=== PATIENT | male | born 1935 | race Caucasian/White ===

== ENCOUNTER 2023-06-06 10:50 | Emergency (ER) | payer MEDICARE ==
[2023-06-06 11:26] LABS: HEMATOCRIT 31.6 % (38.3-50.1); HEMOGLOBIN 10.4 g/dL (12.9-17.7); MEAN CORPUSCULAR HEMOGLOBIN 29.4 pg (27.0-33.3); MEAN CORPUSCULAR HGB CONC 33.1 g/dL (28.7-35.3); MEAN CORPUSCULAR VOLUME 88.9 fL (80.8-98.7); MEAN PLATELET VOLUME 8.8 fL (6.7-11.0); PLATELET COUNT,PLT 129 x10(3)uL (117-477); RED BLOOD CELL COUNT 3.55 x10(6)uL (3.90-5.90); WHITE BLOOD CELL COUNT,WBC 5.1 x10-3/uL (3.2-10.1)
[2023-06-06 11:33] LABS: A/G RATIO 0.6; ALANINE AMINOTRANSFERASE,ALT 50 U/L (12-36); ALBUMIN 2.2 g/dL (3.2-4.6); ALKALINE PHOSPHATASE 161 IU/L (56-112); ASPARTATE AMNIOTRANSFERASE,AST 42 IU/L (5-25); BLOOD UREA NITROGEN,BUN 22 mg/dL (7-18); BUN/CREATININE RATIO 14.7 (9-20); CALCIUM 8.6 mg/dL (8.6-10.2); CARBON DIOXIDE,CO2 28 mmol/L (21-32); CHLORIDE,CL 104 mmol/L (100-110); CREATININE 1.5 mg/dL (0.70-1.30); EST CRCL DRUG DOSING (CG) 39.52 mL/min; ESTIMATED GFR 45 mL/min (>60); GLUCOSE RANDOM 106 mg/dL (80-116); POTASSIUM,K 3.7 mmol/L (3.5-5.3); PROTEIN TOTAL,TP 5.9 g/dL (6.0-8.0); SODIUM,NA 139 mmol/L (135-145)
[2023-06-06 11:44] LABS: BAND PERCENT MAN 3 % (0-6); LYMPHOCYTES PERCENT MAN 8 % (13-37); MONOCYTES PERCENT MAN 8 % (4-12); SEG NEUTROPHILS PERCENT MAN 81 % (46-82)
[2023-06-06 11:45] LABS: ANISOCYTOSIS FEW
[2023-06-06 11:57] LABS: INFLUENZA A NAA NEGATIVE (NEGATIVE); INFLUENZA B NAA NEGATIVE (NEGATIVE); RESPIRATORY SYNCYTIAL VIR NAA NEGATIVE (NEGATIVE)
[2023-06-06 11:58] LABS: CORONAVIRUS COVID-19 NAA NEGATIVE (NEGATIVE)
[2023-06-06 12:20] VITALS: BP 121/62; PULSE 88
== END 2023-06-06 12:15 | disposition home or self-care (01) ==
LOC: FB.ED 10:50
DX: J18.9 Pneumonia, unspecified organism (principal); E03.9 Hypothyroidism, unspecified; Z87.891 Personal history of nicotine dependence; Z88.2 Allergy status to sulfonamides; Z79.899 Other long term (current) drug therapy; Z20.822 Contact with and (suspected) exposure to COVID-19
CPT/HCPCS: 0241U; 36415; 71046; 80053; 83605; 85025; 85379; 87040; 99284

== ENCOUNTER 2023-09-01 09:16 | Emergency (ER) | payer MEDICARE ==
[2023-09-01] MEDS ORDERED: Sodium Chloride 0.9% 10 ML Syringe FLUSH PRN (09:52)
[2023-09-01 10:04] LABS: BASOPHILS PERCENT AUTO 0.1 % (0.3-3.8); EOSINOPHILS PERCENT AUTO 0.1 % (0.1-6.8); HEMATOCRIT 35.5 % (38.3-50.1); HEMOGLOBIN 11.5 g/dL (12.9-17.7); LYMPHOCYTES ABSOLUTE AUTO 0.6 x10-3/uL (0.5-4.5); LYMPHOCYTES PERCENT AUTO 12.4 % (15.8-45.3); MEAN CORPUSCULAR HGB CONC 32.5 g/dL (28.7-35.3); MEAN CORPUSCULAR VOLUME 85.9 fL (80.8-98.7); MEAN PLATELET VOLUME 8.1 fL (6.7-11.0); MONOCYTES ABSOLUTE AUTO 0.4 x10-3/uL (0.0-1.2); NEUTROPHILS ABSOLUTE AUTO 3.7 x10-3/uL (1.7-6.9); NEUTROPHILS PERCENT AUTO 78.4 % (40.3-71.8); PLATELET COUNT,PLT 106 x10(3)uL (117-477); RED BLOOD CELL COUNT 4.13 x10(6)uL (3.90-5.90); RED CELL DISTRIBUTION WIDTH 16.9 % (12.4-15.0); WHITE BLOOD CELL COUNT,WBC 4.7 x10-3/uL (3.2-10.1)
[2023-09-01 10:10] LABS: BLOOD UREA NITROGEN,BUN 36 mg/dL (7-18); BUN/CREATININE RATIO 22.5 (9-20); CARBON DIOXIDE,CO2 26 mmol/L (21-32); CHLORIDE,CL 107 mmol/L (100-110); CREATININE 1.6 mg/dL (0.70-1.30); ESTIMATED GFR 42 mL/min (>60); GLUCOSE RANDOM 93 mg/dL (80-116); SODIUM,NA 143 mmol/L (135-145)
[2023-09-01 10:11] LABS: BASE EXCESS VENOUS,POC -3 mmol/L (-2 - 3+); PCO2 VENOUS,POC 36 mmHg (41-51)
[2023-09-01 10:16] LABS: A/G RATIO 0.9; ALANINE AMINOTRANSFERASE,ALT 39 U/L (12-36); ALBUMIN 2.9 g/dL (3.2-4.6); ALKALINE PHOSPHATASE 96 IU/L (56-112); ASPARTATE AMNIOTRANSFERASE,AST 56 IU/L (5-25); PROTEIN TOTAL,TP 6.1 g/dL (6.0-8.0)
[2023-09-01 10:23] LABS: TROPONIN I 58.3 pg/mL (4.0-60.3)
[2023-09-01 10:26] LABS: C-REACTIVE PROTEIN 20.71 mg/dL (<0.50)
[2023-09-01 11:07] LABS: BILIRUBIN,URINE NEGATIVE (NEGATIVE); GLUCOSE,URINE NORMAL (NORMAL); KETONES,URINE 15 mg/dL (NEGATIVE); LEUKOCYTE ESTERASE,URINE NEGATIVE (NEGATIVE); NITRITE,URINE NEGATIVE (NEGATIVE); OCCULT BLOOD,URINE MODERATE (NEGATIVE); PROTEIN,URINE TRACE mg/dL (NEGATIVE); UROBILINOGEN,URINE NORMAL (NEGATIVE)
[2023-09-01] MEDS: Sodium Chloride 0.9% 1,000 ML IV SCH ×2 (11:12→12:41)
[2023-09-01 11:14] LABS: APPEARANCE,URINE CLEAR (CLEAR); BACTERIA,URINE MODERATE (NS); COARSE GRANULAR CASTS,URINE FEW (NS); COLOR,URINE YELLOW (YELLOW); RBC,URINE 0-5 (0-5); SQUAMOUS EPITHELIAL CELLS,UR OCCASIONAL (NS,R,O); WBC,URINE 0-5 (0-5)
[2023-09-01 15:03] VITALS: BP 117/55; PULSE 61
== END 2023-09-01 14:00 | disposition home or self-care (01) ==
LOC: FB.ED 09:16
DX: S00.03XA Contusion of scalp, initial encounter (principal); S00.12XA Contusion of left eyelid and periocular area, initial encounter; E86.0 Dehydration; E03.9 Hypothyroidism, unspecified; Z86.16 Personal history of COVID-19; Z90.49 Acquired absence of other specified parts of digestive tract; Z79.899 Other long term (current) drug therapy; Z88.2 Allergy status to sulfonamides; W19.XXXA Unspecified fall, initial encounter; Y92.009 Unspecified place in unspecified non-institutional (private) residence as the place of occurrence of the external cause
CPT/HCPCS: 71045; 80053; 81001; 83605; 83880; 84484; 85025; 85379; 86140; 93005; 96360; 96361; 99285; J3490; J7030

== ENCOUNTER 2023-09-04 09:36 | Inpatient (IN) | payer MEDICARE ==
[2023-09-04] MEDS ORDERED: cefTRIAXone 2 GM Vial IVPUSH ONE (09:42)
[2023-09-04] MEDS ORDERED: Acetaminophen 325 MG Tab PO ONE (09:42)
[2023-09-04] MEDS ORDERED: Sodium Chloride 0.9% 1,000 ML IV SCH (09:45)
[2023-09-04] MEDS: Sodium Chloride 0.9% 10 ML Syringe FLUSH PRN (10:05)
[2023-09-04 10:14] LABS: HEMATOCRIT 32.4 % (38.3-50.1); HEMOGLOBIN 10.6 g/dL (12.9-17.7); MEAN CORPUSCULAR HEMOGLOBIN 27.6 pg (27.0-33.3); MEAN CORPUSCULAR HGB CONC 32.6 g/dL (28.7-35.3); MEAN CORPUSCULAR VOLUME 84.6 fL (80.8-98.7); MEAN PLATELET VOLUME 8.3 fL (6.7-11.0); PLATELET COUNT,PLT 105 x10(3)uL (117-477); RED BLOOD CELL COUNT 3.83 x10(6)uL (3.90-5.90); RED CELL DISTRIBUTION WIDTH 17.3 % (12.4-15.0); WHITE BLOOD CELL COUNT,WBC 5.8 x10-3/uL (3.2-10.1)
[2023-09-04 10:15] LABS: BLOOD UREA NITROGEN,BUN 22 mg/dL (7-18); BUN/CREATININE RATIO 15.7 (9-20); CALCIUM 8.5 mg/dL (8.6-10.2); CARBON DIOXIDE,CO2 24 mmol/L (21-32); CHLORIDE,CL 106 mmol/L (100-110); CREATININE 1.4 mg/dL (0.70-1.30); ESTIMATED GFR 49 mL/min (>60); GLUCOSE RANDOM 93 mg/dL (80-116); POTASSIUM,K 3.5 mmol/L (3.5-5.3); SODIUM,NA 139 mmol/L (135-145)
[2023-09-04 10:33] LABS: ANISOCYTOSIS FEW; LYMPHOCYTES PERCENT MAN 8 % (13-37); MONOCYTES PERCENT MAN 6 % (4-12); SEG NEUTROPHILS PERCENT MAN 86 % (46-82)
[2023-09-04] MEDS ORDERED: Ibuprofen 600 MG Tab PO PRN (11:01)
[2023-09-04] MEDS ORDERED: Azithromycin 500 MG in Sodium Chloride 0.9% 250 ML IV ONE (11:04)
[2023-09-04] MEDS ORDERED: Enoxaparin 40 MG/0.4 ML Syringe SUBCUT SCH (11:15)
[2023-09-04] MEDS: Sodium Chloride 0.9% 1,000 ML IV SCH ×2 (11:16→21:08)
[2023-09-04 11:43] LABS: INFLUENZA A NAA NEGATIVE (NEGATIVE); INFLUENZA B NAA NEGATIVE (NEGATIVE); RESPIRATORY SYNCYTIAL VIR NAA NEGATIVE (NEGATIVE)
[2023-09-04 11:45] LABS: CORONAVIRUS COVID-19 NAA POSITIVE (NEGATIVE)
[2023-09-04] MEDS ORDERED: Gabapentin 600 MG Tab PO PRN (11:52)
[2023-09-04] MEDS ORDERED: VANCOmycin 1.5 GM/300 ML 1.5 GM in Premix Bag 1 BAG IV ONE (12:00)
[2023-09-04] MEDS: Enoxaparin 40 MG/0.4 ML Syringe SUBCUT SCH (14:37)
[2023-09-04 17:29] LABS: BILIRUBIN,URINE NEGATIVE (NEGATIVE); GLUCOSE,URINE NORMAL (NORMAL); KETONES,URINE NEGATIVE (NEGATIVE); LEUKOCYTE ESTERASE,URINE NEGATIVE (NEGATIVE); NITRITE,URINE NEGATIVE (NEGATIVE); OCCULT BLOOD,URINE NEGATIVE (NEGATIVE); PROTEIN,URINE NEGATIVE (NEGATIVE); UROBILINOGEN,URINE NORMAL (NEGATIVE)
[2023-09-04 17:33] LABS: APPEARANCE,URINE CLEAR (CLEAR); COLOR,URINE YELLOW (YELLOW); WBC,URINE 0-5 (0-5)
[2023-09-04 17:34] LABS: BACTERIA,URINE FEW (NS); SQUAMOUS EPITHELIAL CELLS,UR OCCASIONAL (NS,R,O)
[2023-09-04] MEDS: Acyclovir 400 MG Tab PO SCH (20:32)
[2023-09-04] MEDS: Saccharomyces Boulardii (Probiotic) 250 MG Cap PO SCH (20:33)
[2023-09-04] MEDS: Acetaminophen 325 MG Tab PO PRN (20:44)
[2023-09-05] MEDS: Sodium Chloride 0.9% 1,000 ML IV SCH ×3 (05:11→22:45)
[2023-09-05 06:36] LABS: BASOPHILS PERCENT AUTO 0.1 % (0.3-3.8); EOSINOPHILS PERCENT AUTO 0.1 % (0.1-6.8); HEMATOCRIT 29.5 % (38.3-50.1); HEMOGLOBIN 9.7 g/dL (12.9-17.7); LYMPHOCYTES ABSOLUTE AUTO 0.5 x10-3/uL (0.5-4.5); LYMPHOCYTES PERCENT AUTO 14.5 % (15.8-45.3); MEAN PLATELET VOLUME 7.8 fL (6.7-11.0); MONOCYTES ABSOLUTE AUTO 0.2 x10-3/uL (0.0-1.2); MONOCYTES PERCENT AUTO 7.1 % (5.5-15.2); NEUTROPHILS ABSOLUTE AUTO 2.6 x10-3/uL (1.7-6.9); NEUTROPHILS PERCENT AUTO 78.2 % (40.3-71.8); PLATELET COUNT,PLT 86 x10(3)uL (117-477); RED BLOOD CELL COUNT 3.47 x10(6)uL (3.90-5.90); WHITE BLOOD CELL COUNT,WBC 3.3 x10-3/uL (3.2-10.1)
[2023-09-05 06:47] LABS: A/G RATIO 0.6; ALANINE AMINOTRANSFERASE,ALT 61 U/L (12-36); ALBUMIN 1.8 g/dL (3.2-4.6); ALKALINE PHOSPHATASE 95 IU/L (56-112); ASPARTATE AMNIOTRANSFERASE,AST 79 IU/L (5-25); BILIRUBIN TOTAL 0.4 mg/dL (0.1-1.3); BLOOD UREA NITROGEN,BUN 19 mg/dL (7-18); BUN/CREATININE RATIO 17.3 (9-20); CARBON DIOXIDE,CO2 22 mmol/L (21-32); CHLORIDE,CL 112 mmol/L (100-110); CREATININE 1.1 mg/dL (0.70-1.30); EST CRCL DRUG DOSING (CG) 49.79 mL/min; ESTIMATED GFR 65 mL/min (>60); GLUCOSE RANDOM 84 mg/dL (80-116); POTASSIUM,K 3.4 mmol/L (3.5-5.3); PROTEIN TOTAL,TP 4.6 g/dL (6.0-8.0); SODIUM,NA 142 mmol/L (135-145)
[2023-09-05] MEDS: Ascorbic Acid 500 MG Tab PO SCH (10:03)
[2023-09-05] MEDS: Azithromycin 250 MG Tab PO SCH (10:04)
[2023-09-05] MEDS: Multivitamin Tab PO SCH (10:04)
[2023-09-05] MEDS: Saccharomyces Boulardii (Probiotic) 250 MG Cap PO SCH ×2 (10:04→20:33)
[2023-09-05] MEDS: Acyclovir 400 MG Tab PO SCH ×2 (10:05→20:33)
[2023-09-05] MEDS: VANCOmycin 1.25 GM/250 ML 1.25 GM in Premix Bag 1 BAG IV SCH (11:27)
[2023-09-05] MEDS ORDERED: cefTRIAXone 1 GM in Sodium Chloride 0.9% 50 ML IV SCH (12:00)
[2023-09-05] MEDS: cefTRIAXone 1 GM Vial IVPUSH SCH (13:00)
[2023-09-05] MEDS: Enoxaparin 40 MG/0.4 ML Syringe SUBCUT SCH (13:00)
[2023-09-05] MEDS: Acetaminophen 325 MG Tab PO PRN (20:33)
[2023-09-06] MEDS: Sodium Chloride 0.9% 1,000 ML IV SCH (06:30)
[2023-09-06 06:58] LABS: BASOPHILS PERCENT AUTO 0.1 % (0.3-3.8); EOSINOPHILS PERCENT AUTO 0.2 % (0.1-6.8); HEMATOCRIT 31.5 % (38.3-50.1); HEMOGLOBIN 10.3 g/dL (12.9-17.7); LYMPHOCYTES ABSOLUTE AUTO 0.4 x10-3/uL (0.5-4.5); LYMPHOCYTES PERCENT AUTO 13.7 % (15.8-45.3); MEAN CORPUSCULAR HEMOGLOBIN 27.9 pg (27.0-33.3); MEAN CORPUSCULAR HGB CONC 32.6 g/dL (28.7-35.3); MEAN CORPUSCULAR VOLUME 85.6 fL (80.8-98.7); MEAN PLATELET VOLUME 8.2 fL (6.7-11.0); MONOCYTES ABSOLUTE AUTO 0.2 x10-3/uL (0.0-1.2); MONOCYTES PERCENT AUTO 6.4 % (5.5-15.2); NEUTROPHILS ABSOLUTE AUTO 2.5 x10-3/uL (1.7-6.9); NEUTROPHILS PERCENT AUTO 79.6 % (40.3-71.8); PLATELET COUNT,PLT 100 x10(3)uL (117-477); RED BLOOD CELL COUNT 3.68 x10(6)uL (3.90-5.90); WHITE BLOOD CELL COUNT,WBC 3.1 x10-3/uL (3.2-10.1)
[2023-09-06 07:11] LABS: A/G RATIO 0.6; ALANINE AMINOTRANSFERASE,ALT 55 U/L (12-36); ALBUMIN 1.9 g/dL (3.2-4.6); ALKALINE PHOSPHATASE 94 IU/L (56-112); ASPARTATE AMNIOTRANSFERASE,AST 61 IU/L (5-25); BILIRUBIN TOTAL 0.4 mg/dL (0.1-1.3); BLOOD UREA NITROGEN,BUN 14 mg/dL (7-18); BUN/CREATININE RATIO 12.7 (9-20); CALCIUM 8.1 mg/dL (8.6-10.2); CARBON DIOXIDE,CO2 22 mmol/L (21-32); CHLORIDE,CL 110 mmol/L (100-110); CREATININE 1.1 mg/dL (0.70-1.30); EST CRCL DRUG DOSING (CG) 51.11 mL/min; ESTIMATED GFR 65 mL/min (>60); GLUCOSE RANDOM 79 mg/dL (80-116); POTASSIUM,K 3.3 mmol/L (3.5-5.3); PROTEIN TOTAL,TP 4.9 g/dL (6.0-8.0); SODIUM,NA 141 mmol/L (135-145)
[2023-09-06] MEDS ORDERED: Potassium Chloride 20 MEQ Tab.ER PO ONE (08:42)
[2023-09-06] MEDS: Multivitamin Tab PO SCH (09:09)
[2023-09-06] MEDS: Saccharomyces Boulardii (Probiotic) 250 MG Cap PO SCH ×2 (09:09→20:25)
[2023-09-06] MEDS: Azithromycin 250 MG Tab PO SCH (09:10)
[2023-09-06] MEDS: Acyclovir 400 MG Tab PO SCH ×2 (09:10→20:26)
[2023-09-06] MEDS: Ascorbic Acid 500 MG Tab PO SCH (09:10)
[2023-09-06] MEDS: VANCOmycin 1.25 GM/250 ML 1.25 GM in Premix Bag 1 BAG IV SCH (11:38)
[2023-09-06] MEDS: Enoxaparin 40 MG/0.4 ML Syringe SUBCUT SCH (12:51)
[2023-09-06] MEDS: cefTRIAXone 1 GM Vial IVPUSH SCH (12:53)
[2023-09-06] MEDS: Acetaminophen 325 MG Tab PO PRN (20:25)
[2023-09-07 06:51] LABS: BASOPHILS PERCENT AUTO 0.3 % (0.3-3.8); EOSINOPHILS PERCENT AUTO 0.2 % (0.1-6.8); HEMATOCRIT 31.8 % (38.3-50.1); HEMOGLOBIN 10.4 g/dL (12.9-17.7); LYMPHOCYTES ABSOLUTE AUTO 0.5 x10-3/uL (0.5-4.5); LYMPHOCYTES PERCENT AUTO 17.3 % (15.8-45.3); MEAN CORPUSCULAR HEMOGLOBIN 27.7 pg (27.0-33.3); MEAN CORPUSCULAR HGB CONC 32.9 g/dL (28.7-35.3); MEAN CORPUSCULAR VOLUME 84.3 fL (80.8-98.7); MEAN PLATELET VOLUME 7.9 fL (6.7-11.0); MONOCYTES ABSOLUTE AUTO 0.3 x10-3/uL (0.0-1.2); MONOCYTES PERCENT AUTO 9.7 % (5.5-15.2); NEUTROPHILS ABSOLUTE AUTO 2.1 x10-3/uL (1.7-6.9); NEUTROPHILS PERCENT AUTO 72.5 % (40.3-71.8); PLATELET COUNT,PLT 93 x10(3)uL (117-477); RED BLOOD CELL COUNT 3.77 x10(6)uL (3.90-5.90); RED CELL DISTRIBUTION WIDTH 17.3 % (12.4-15.0); WHITE BLOOD CELL COUNT,WBC 2.9 x10-3/uL (3.2-10.1)
[2023-09-07 07:05] LABS: A/G RATIO 0.7; ALANINE AMINOTRANSFERASE,ALT 65 U/L (12-36); ALBUMIN 1.9 g/dL (3.2-4.6); ALKALINE PHOSPHATASE 95 IU/L (56-112); ASPARTATE AMNIOTRANSFERASE,AST 68 IU/L (5-25); BILIRUBIN TOTAL 0.5 mg/dL (0.1-1.3); BLOOD UREA NITROGEN,BUN 16 mg/dL (7-18); BUN/CREATININE RATIO 14.5 (9-20); CALCIUM 8.3 mg/dL (8.6-10.2); CARBON DIOXIDE,CO2 24 mmol/L (21-32); CHLORIDE,CL 109 mmol/L (100-110); CREATININE 1.1 mg/dL (0.70-1.30); EST CRCL DRUG DOSING (CG) 51.11 mL/min; ESTIMATED GFR 65 mL/min (>60); GLUCOSE RANDOM 117 mg/dL (80-116); POTASSIUM,K 3.7 mmol/L (3.5-5.3); PROTEIN TOTAL,TP 4.8 g/dL (6.0-8.0); SODIUM,NA 142 mmol/L (135-145)
[2023-09-07] MEDS: Ascorbic Acid 500 MG Tab PO SCH (08:52)
[2023-09-07] MEDS: Acyclovir 400 MG Tab PO SCH ×2 (08:52→20:34)
[2023-09-07] MEDS: Saccharomyces Boulardii (Probiotic) 250 MG Cap PO SCH ×2 (08:52→20:34)
[2023-09-07] MEDS: Multivitamin Tab PO SCH (08:52)
[2023-09-07] MEDS ORDERED: Cefepime 1 GM Vial IVPUSH SCH (09:15)
[2023-09-07] MEDS: Cefepime 2 GM Vial IV SCH ×2 (10:19→22:16)
[2023-09-07] MEDS: VANCOmycin 1.25 GM/250 ML 1.25 GM in Premix Bag 1 BAG IV SCH (11:20)
[2023-09-07] MEDS: Sodium Chloride 0.9% 10 ML Syringe FLUSH PRN ×2 (12:59→22:21)
[2023-09-07] MEDS: Acetaminophen 325 MG Tab PO PRN (20:33)
[2023-09-08 06:50] LABS: BASOPHILS PERCENT AUTO 0.2 % (0.3-3.8); EOSINOPHILS PERCENT AUTO 0.3 % (0.1-6.8); HEMATOCRIT 31.6 % (38.3-50.1); HEMOGLOBIN 10.5 g/dL (12.9-17.7); LYMPHOCYTES ABSOLUTE AUTO 0.5 x10-3/uL (0.5-4.5); MEAN CORPUSCULAR HEMOGLOBIN 27.9 pg (27.0-33.3); MEAN CORPUSCULAR HGB CONC 33.3 g/dL (28.7-35.3); MEAN CORPUSCULAR VOLUME 83.9 fL (80.8-98.7); MEAN PLATELET VOLUME 7.9 fL (6.7-11.0); MONOCYTES ABSOLUTE AUTO 0.3 x10-3/uL (0.0-1.2); MONOCYTES PERCENT AUTO 9.3 % (5.5-15.2); NEUTROPHILS ABSOLUTE AUTO 2.4 x10-3/uL (1.7-6.9); NEUTROPHILS PERCENT AUTO 74.2 % (40.3-71.8); PLATELET COUNT,PLT 100 x10(3)uL (117-477); RED BLOOD CELL COUNT 3.77 x10(6)uL (3.90-5.90); RED CELL DISTRIBUTION WIDTH 17.1 % (12.4-15.0); WHITE BLOOD CELL COUNT,WBC 3.2 x10-3/uL (3.2-10.1)
[2023-09-08 07:01] LABS: A/G RATIO 0.7; ALANINE AMINOTRANSFERASE,ALT 65 U/L (12-36); ALKALINE PHOSPHATASE 97 IU/L (56-112); ASPARTATE AMNIOTRANSFERASE,AST 68 IU/L (5-25); BILIRUBIN TOTAL 0.5 mg/dL (0.1-1.3); BLOOD UREA NITROGEN,BUN 16 mg/dL (7-18); CALCIUM 8.3 mg/dL (8.6-10.2); CARBON DIOXIDE,CO2 24 mmol/L (21-32); CHLORIDE,CL 106 mmol/L (100-110); ESTIMATED GFR 73 mL/min (>60); GLUCOSE RANDOM 88 mg/dL (80-116); POTASSIUM,K 3.6 mmol/L (3.5-5.3); SODIUM,NA 140 mmol/L (135-145)
[2023-09-08] MEDS: Ascorbic Acid 500 MG Tab PO SCH (08:38)
[2023-09-08] MEDS: Acyclovir 400 MG Tab PO SCH ×2 (08:38→21:44)
[2023-09-08] MEDS: Saccharomyces Boulardii (Probiotic) 250 MG Cap PO SCH ×2 (08:38→21:44)
[2023-09-08] MEDS: Multivitamin Tab PO SCH (08:38)
[2023-09-08] MEDS: Sodium Chloride 0.9% 10 ML Syringe FLUSH PRN ×2 (10:00→21:45)
[2023-09-08] MEDS: Cefepime 2 GM Vial IV SCH ×2 (10:02→21:46)
[2023-09-08] MEDS: VANCOmycin 1.25 GM/250 ML 1.25 GM in Premix Bag 1 BAG IV SCH (11:13)
[2023-09-08] MEDS: Enoxaparin 40 MG/0.4 ML Syringe SUBCUT SCH (11:14)
[2023-09-08] MEDS ORDERED: Gabapentin 300 MG Cap PO PRN (16:37)
[2023-09-09 07:19] LABS: BASOPHILS PERCENT AUTO 0.1 % (0.3-3.8); EOSINOPHILS PERCENT AUTO 0.2 % (0.1-6.8); HEMATOCRIT 30.5 % (38.3-50.1); HEMOGLOBIN 10.1 g/dL (12.9-17.7); LYMPHOCYTES ABSOLUTE AUTO 0.5 x10-3/uL (0.5-4.5); LYMPHOCYTES PERCENT AUTO 16.1 % (15.8-45.3); MEAN CORPUSCULAR HEMOGLOBIN 27.7 pg (27.0-33.3); MEAN CORPUSCULAR HGB CONC 33.1 g/dL (28.7-35.3); MEAN CORPUSCULAR VOLUME 83.6 fL (80.8-98.7); MEAN PLATELET VOLUME 8.1 fL (6.7-11.0); MONOCYTES ABSOLUTE AUTO 0.3 x10-3/uL (0.0-1.2); MONOCYTES PERCENT AUTO 8.6 % (5.5-15.2); NEUTROPHILS ABSOLUTE AUTO 2.5 x10-3/uL (1.7-6.9); PLATELET COUNT,PLT 101 x10(3)uL (117-477); RED BLOOD CELL COUNT 3.64 x10(6)uL (3.90-5.90); RED CELL DISTRIBUTION WIDTH 16.8 % (12.4-15.0); WHITE BLOOD CELL COUNT,WBC 3.4 x10-3/uL (3.2-10.1)
[2023-09-09 07:38] LABS: A/G RATIO 0.7; ALANINE AMINOTRANSFERASE,ALT 75 U/L (12-36); ALKALINE PHOSPHATASE 102 IU/L (56-112); ASPARTATE AMNIOTRANSFERASE,AST 70 IU/L (5-25); BILIRUBIN TOTAL 0.5 mg/dL (0.1-1.3); BLOOD UREA NITROGEN,BUN 16 mg/dL (7-18); CALCIUM 8.5 mg/dL (8.6-10.2); CARBON DIOXIDE,CO2 22 mmol/L (21-32); CHLORIDE,CL 106 mmol/L (100-110); ESTIMATED GFR 73 mL/min (>60); GLUCOSE RANDOM 91 mg/dL (80-116); POTASSIUM,K 3.6 mmol/L (3.5-5.3); SODIUM,NA 139 mmol/L (135-145)
[2023-09-09] MEDS: Multivitamin Tab PO SCH (09:40)
[2023-09-09] MEDS: Saccharomyces Boulardii (Probiotic) 250 MG Cap PO SCH ×2 (09:40→20:16)
[2023-09-09] MEDS: Acyclovir 400 MG Tab PO SCH ×2 (09:40→20:16)
[2023-09-09] MEDS: Ascorbic Acid 500 MG Tab PO SCH (09:40)
[2023-09-09] MEDS: Cefepime 2 GM Vial IV SCH ×2 (10:44→21:48)
[2023-09-09] MEDS: VANCOmycin 1.25 GM/250 ML 1.25 GM in Premix Bag 1 BAG IV SCH (11:19)
[2023-09-09] MEDS: Enoxaparin 40 MG/0.4 ML Syringe SUBCUT SCH (11:23)
[2023-09-09] MEDS: Acetaminophen 325 MG Tab PO PRN (20:19)
[2023-09-09] MEDS: Sodium Chloride 0.9% 10 ML Syringe FLUSH PRN (21:55)
[2023-09-10] MEDS ORDERED: Doxycycline 100 MG Tab PO SCH (09:00)
[2023-09-10] MEDS: Levofloxacin 500 MG Tab PO SCH (09:16)
[2023-09-10] MEDS: Ascorbic Acid 500 MG Tab PO SCH (09:18)
[2023-09-10] MEDS: Acyclovir 400 MG Tab PO SCH ×2 (09:18→20:13)
[2023-09-10] MEDS: Multivitamin Tab PO SCH (09:18)
[2023-09-10] MEDS: Saccharomyces Boulardii (Probiotic) 250 MG Cap PO SCH ×2 (09:18→20:13)
[2023-09-10] MEDS: Enoxaparin 40 MG/0.4 ML Syringe SUBCUT SCH (12:32)
[2023-09-11] MEDS: Levothyroxine 150 MCG Tab PO SCH (06:34)
[2023-09-11] MEDS: Levothyroxine 25 MCG Tab PO SCH (06:35)
[2023-09-11] MEDS: Levofloxacin 500 MG Tab PO SCH (09:06)
[2023-09-11] MEDS: Saccharomyces Boulardii (Probiotic) 250 MG Cap PO SCH ×2 (09:07→20:18)
[2023-09-11] MEDS: Ascorbic Acid 500 MG Tab PO SCH (09:07)
[2023-09-11] MEDS: Multivitamin Tab PO SCH (09:07)
[2023-09-11] MEDS: Acyclovir 400 MG Tab PO SCH ×2 (09:07→20:18)
[2023-09-11] MEDS: Enoxaparin 40 MG/0.4 ML Syringe SUBCUT SCH (12:40)
[2023-09-11] MEDS: Sodium Chloride 0.9% 10 ML Syringe FLUSH PRN (12:45)
[2023-09-12] MEDS: Levothyroxine 25 MCG Tab PO SCH (05:22)
[2023-09-12] MEDS: Levothyroxine 150 MCG Tab PO SCH (05:22)
[2023-09-12] MEDS: Saccharomyces Boulardii (Probiotic) 250 MG Cap PO SCH ×2 (09:07→20:40)
[2023-09-12] MEDS: Levofloxacin 500 MG Tab PO SCH (09:07)
[2023-09-12] MEDS: Ascorbic Acid 500 MG Tab PO SCH (09:07)
[2023-09-12] MEDS: Multivitamin Tab PO SCH (09:07)
[2023-09-12] MEDS: Acyclovir 400 MG Tab PO SCH ×2 (10:01→20:40)
[2023-09-12] MEDS: Enoxaparin 40 MG/0.4 ML Syringe SUBCUT SCH (12:37)
[2023-09-13] MEDS: Levofloxacin 500 MG Tab PO SCH (08:24)
[2023-09-13] MEDS: Acyclovir 400 MG Tab PO SCH (08:24)
[2023-09-13] MEDS: Saccharomyces Boulardii (Probiotic) 250 MG Cap PO SCH (08:24)
[2023-09-13] MEDS: Ascorbic Acid 500 MG Tab PO SCH (08:24)
[2023-09-13] MEDS: Multivitamin Tab PO SCH (08:24)
[2023-09-13] MEDS: Acetaminophen 325 MG Tab PO PRN (08:25)
[2023-09-13 08:54] VITALS: BP 140/61; PULSE 92
[2023-09-13 20:56] LABS: THYROXINE FREE 1.9 ng/dL (0.9-1.7); TRIIODOTHYRONINE,FREE FREE T3 1.4 pg/mL (2.5-4.3)
== END 2023-09-13 11:00 | disposition swing bed (61) | DRG 177 ==
LOC: FB.ED 09:36 → FB.MS 11:34
PROVIDERS: ADMIT Family Medicine; ATTEND Family Medicine
DX: U07.1 COVID-19 (principal); J12.82 Pneumonia due to coronavirus disease 2019; R53.1 Weakness; N17.9 Acute kidney failure, unspecified; Z66 Do not resuscitate; Z86.16 Personal history of COVID-19; Z51.5 Encounter for palliative care; E03.9 Hypothyroidism, unspecified; B02.9 Zoster without complications; G62.9 Polyneuropathy, unspecified; F41.9 Anxiety disorder, unspecified; F32.A Depression, unspecified; E86.0 Dehydration; T07.XXXA Unspecified multiple injuries, initial encounter; R79.89 Other specified abnormal findings of blood chemistry; D64.9 Anemia, unspecified; Z88.2 Allergy status to sulfonamides; Z79.899 Other long term (current) drug therapy; Z90.89 Acquired absence of other organs; Z98.49 Cataract extraction status, unspecified eye; Z90.49 Acquired absence of other specified parts of digestive tract; Z98.890 Other specified postprocedural states; Z85.72 Personal history of non-Hodgkin lymphomas; Z87.891 Personal history of nicotine dependence; Y92.009 Unspecified place in unspecified non-institutional (private) residence as the place of occurrence of the external cause; W19.XXXA Unspecified fall, initial encounter
CPT/HCPCS: 0241U; 36415; 71045; 80048; 80053; 80202; 81001; 84439; 84443; 84481; 85025; 86140; 87040; 96361; 96374; 97110-GP; 97161-GP; 97165-GO; 97530-GO; 97530-GP; 97535-GO; 99285; 99285-25; A9270-GY; J0456; J0692; J0696; J1650; J3370; J3490; J7030; J7050

== ENCOUNTER 2023-09-13 11:04 | Inpatient (IN) | payer MEDICARE ==
[2023-09-13] MEDS ORDERED: Gabapentin 300 MG Cap PO PRN (11:16)
[2023-09-13] MEDS: Cholecalciferol (Vitamin D3) 5,000 UNIT Cap PO SCH (20:14)
[2023-09-13] MEDS: Saccharomyces Boulardii (Probiotic) 250 MG Cap PO SCH (20:14)
[2023-09-13] MEDS: Acyclovir 400 MG Tab PO SCH (20:15)
[2023-09-14] MEDS: Levofloxacin 500 MG Tab PO SCH (08:47)
[2023-09-14] MEDS: Cholecalciferol (Vitamin D3) 5,000 UNIT Cap PO SCH ×2 (08:47→21:04)
[2023-09-14] MEDS: Ascorbic Acid 500 MG Tab PO SCH (08:47)
[2023-09-14] MEDS: Acyclovir 400 MG Tab PO SCH ×2 (08:48→21:05)
[2023-09-14] MEDS ORDERED: Multivitamin Tab PO SCH (09:00)
[2023-09-14] MEDS: Escitalopram 10 MG Tab PO SCH (12:50)
[2023-09-14] MEDS: Saccharomyces Boulardii (Probiotic) 250 MG Cap PO SCH (21:05)
[2023-09-15] MEDS: Levofloxacin 500 MG Tab PO SCH (08:39)
[2023-09-15] MEDS: Ascorbic Acid 500 MG Tab PO SCH (08:39)
[2023-09-15] MEDS: Escitalopram 10 MG Tab PO SCH (08:39)
[2023-09-15] MEDS: Cholecalciferol (Vitamin D3) 5,000 UNIT Cap PO SCH (08:40)
[2023-09-15] MEDS: Acyclovir 400 MG Tab PO SCH (08:40)
[2023-09-15 08:46] VITALS: BP 114/55; PULSE 89
[2023-09-15] MEDS ORDERED: Multivitamin Tab PO SCH (10:00)
== END 2023-09-15 14:35 | disposition home or self-care (01) | DRG 947 ==
LOC: FB.MS 11:04
PROVIDERS: ADMIT Family Medicine; ATTEND Family Medicine
DX: R53.1 Weakness (principal); J15.9 Unspecified bacterial pneumonia; F32.1 Major depressive disorder, single episode, moderate; N17.9 Acute kidney failure, unspecified; Z51.5 Encounter for palliative care; S00.83XA Contusion of other part of head, initial encounter; S40.022A Contusion of left upper arm, initial encounter; S40.021A Contusion of right upper arm, initial encounter; E86.0 Dehydration; E03.9 Hypothyroidism, unspecified; G62.9 Polyneuropathy, unspecified; D64.9 Anemia, unspecified; R79.89 Other specified abnormal findings of blood chemistry; Z88.2 Allergy status to sulfonamides; Z86.16 Personal history of COVID-19; Z79.890 Hormone replacement therapy; Z90.49 Acquired absence of other specified parts of digestive tract; Z90.89 Acquired absence of other organs; Z90.79 Acquired absence of other genital organ(s); Z98.890 Other specified postprocedural states; Z79.899 Other long term (current) drug therapy; Z87.891 Personal history of nicotine dependence; W19.XXXA Unspecified fall, initial encounter
CPT/HCPCS: 97112-GP; 97116-GP; 97530-GP; 97535-GO; A9270-GY